=== PATIENT | male | born 1985 | race African-American/Black ===

== ENCOUNTER 2024-11-04 21:11 | Emergency (ER) | payer OTHER ==
--- OUTSIDE RECORDS SUMMARY | 2024-11-04 21:15 | XMS REPORT | Continuity of Care Document ---
Author Name Unknown Address [address] [facility]. [address] [place] [id number] [facility] thconnect Address [address] [facility] [place] [address] Care Team Providers Care Chief Operator Reformer Name Role Phone DEO MEYER Primary Care Physician Unavaila NICKY Pérez Attending Clinician Unavailable ERAN LUIS V Attending Clinician Unavailable ANA TANG Attending Clinician Unavailab STEPHEN [place] Attending Clinician UnavailKANG Klein Attending Clinician Unavailable RITA HANNA Attending Clinician Unavailable CONNIE GALLARDO Attending Clinician Unavailab CINDI Shelby Attending Clinician Unavailable MACI IBRAHIM Attending Clinician Unavaila FARHANA Duarte Attending Clinician Unavailable DAVID MARTIN Attending Clinician Unavailable ERASMO BEVERLY Attending Clinician Unavailable Jojo Rolle DO Attending Clinician [phone] JOJO ROLLE Attending Clinician Unavailab le Doctor Unassigned, [place] Attending Clinician U NOHEMI Louis Attending Clinician Unavailable Nohemi Benz NP Attending Clinician [phone] ADALID MURCIA Attending Clinician Unavailable PIYUSH PONCE MD(DO NOT USE) Attending Clinic cierra Unavailable KRIS Attending Clinician UnavailHEBER Cruz Attending Clinician UnavailLIBIA Man Attending Clinician Unavailable CAPRICE CRONIN Attending Clinician Unavail able MITCH Attending Clinician Unavailable STEPHAN KWON Attending Clinician Unavailable BARBIE MEZA Attending Clinician UnavailCATHLEEN Christensen Attending Clinician Unavailab TODD Dunbar Attending Clinician Unavailable MARTINEZ MELCHOR Attending Clinician Unavailable MATHEW BORJA Attending Clinician Unavailable ANANDA CHURCHILL Attending Clinician Unavailable DOMONIQUE BARKER Attending Clinician Unavailable YOHANNES ALLRED Attending Clinician Unavailable INNA BALTAZAR Attending Clinician Unavailab MADDY Alfredo Attending Clinician Unavailable Finn Prasad Attending Clinician Unavailable FELTON, ANNA C Attending Clinician Unavailable FELTON ANNA C Attending Clinician Unavailable ANTONINO PARKS Attending Clinician Unavailab MANUEL Reed Attending Clinician Unavailable ANA VELA Attending Clinician Unavailable CHUY HAYNES Attending Clinician Unavailable GRAYSON MONROY Attending Clinician Unavaila MONIQUE Choi Attending Clinician Unavailable KATHERINE AQUINO Attending Clinician Unavailable FRANCY THAKUR Attending Clinician Unavailable YEMI MULLER V Attending Clinician UnavailVIRA Garcia Attending Clinician Unavailable Sofia AU Attending Clinician Unavailable JOJO ROLLE Admitting Clinician Unavailab NOHEMI Salazar Admitting Clinician Unavailable KRIS Admitting Clinician Unavailmarisela MEYER Admitting Clinician Unavailable TODD BUITRAGO Admitting Clinician Unavailable Finn Prasad Admitting Clinician Unavailable CHUY HAYNES Admitting Clinician Unavailable Payers Payer Name Policy Type Policy Number Effective Date Expirati on Date Source [facility] (MEDICAID HMO) [id number] 2020 00:00:00 Problems Condition Name Condition Details Condition Category Status Onset Date Resolution Date Last Treatment Date Treating Clinician Comments Source Gastroesop hageal reflux disease Gastroesop hageal Reflux Disease Problem Active 2-23 00:00: 00 [place] [facility] Gastric ulcer Gastric Ulcer Problem Active 3 00:00: 00 [facility] Gallstone Gallstone Problem Active 11-24 00:00: 00 [facility] No known active problems No known active problems Disease [facility] Allergies, Adverse Reactions, Alerts Allergy Name Allergy Type Status Severity Reaction(s) Onset Date Inactive Date Treating Clinician Comments Source NO KNOWN ALLERGIE S Drug Class Active [facility] Social History Social Habit Start Date Stop Date Quantity Comments Source Exposure to SARS-CoV-2 (event) 2022-03-24 00:00:00 2022-04-03 17:07:00 Not sure [facility] Sex Assigned At 1985 00:00:00 1985 00:00:00 [facility] Smoking Status Start Date Stop Date Source Former Smoker [facility] Heavy Tobacco Smoker Jenise [facility] Tobacco smoking consumption unknown [facility] Medications Ordered Medication Name Filled Medication Name Start Date Stop Date Current Medication? Ordering Clinician Indication Dosage Frequency Signature (SIG) Comments Components Source ketorolac tromethamin e (TORADOL) injection 30 mg 04-03 22:15: 00 04-03 22:15 :00 No 30mg 30 mg, Slow IV Push, ONCE, 1 dose, On Fri04/03/22 at 1715, NORIS [facility] dexamethaso ne (DECADRON PHOSPHATE) injection 10 mg 10-27 01:45: 00 10-27 00:47 :00 No 10mg 10 mg, Intramuscu lar, ONCE, 1 dose, On Fri10/26/21 at 1945, Routine [facility] methocarbam oL (ROBAXIN) tablet 1,500 mg 10-27 01:45: 00 10-27 00:47 :00 No 1500mg 1,500 mg, Oral, ONCE, 1 dose, On Fri10/26/21 at 1945, NORIS [facility] methylPREDN ISolone 4 mg tablets 10-27 00:00: 00 Yes [id number] Take by mouth SEE-INSTRU CTIONS. follow package directions [facility] traMADoL 50 mg tablet 10-26 00:00: 00 11-03 05:59 :00 No [id number] 50mg Take 1 tablet by mouth every 6 (six) hours as needed for Pain (scale 4-6) or Pain (scale 7-10) for up to 7 days. Indication s: acute pain [facility] methocarbam oL 750 mg tablet 10-26 00:00: 00 10-31 05:59 :00 No [id number] 1500mg Take 2 tablets by mouth 4 (four) times daily for 4 days. [facility] pantoprazol e 40 mg tablet,emeli yed release pantoprazol e 40 mg tablet,emeli yed release No pantoprazo le 40 mg tablet,del ayed release [facility] ciprofloxac in 0.3 % eye drops INSTILL 1 DROP INTO AFFECTED EYE(S) BY OPHTHALMIC ROUTE EVERY 4 HOURSWHILE AWAKE 3D ciprofloxac in 0.3 % eye drops INSTILL 1 DROP INTO AFFECTED EYE(S) BY OPHTHALMIC ROUTE EVERY 4 HOURSWHILE AWAKE 3D No ciprofloxa rajesh 0.3 % eye drops INSTILL 1 DROP INTO AFFECTED EYE(S) BY OPHTHALMIC ROUTE EVERY 4 HOURSWHILE AWAKE 3D [facility] pantoprazol e 40 mg tablet,emeli yed release TAKE ONE TABLET BY MOUTH EVERY DAY FOR ACID REFLUX pantoprazol e 40 mg tablet,emeli yed release TAKE ONE TABLET BY MOUTH EVERY DAY FOR ACID REFLUX No pantoprazo le 40 mg tablet,del ayed release TAKE ONE TABLET BY MOUTH EVERY DAY FOR ACID REFLUX [facility] Vital Signs Vital Name Observation Time Observation Value Comments S ource Systolic blood pressure 2022-04-03 23:45:00 102 mm[Hg] [facility] Diastolic blood pressure 2022-04-03 23:45:00 78 mm[Hg] [facility] Heart rate 2022-04-03 23:45:00 80 /min [facility] Body temperature 2022-04-03 23:45:00 36.67 Lynnette [facility] Respiratory rate 2022-04-03 23:45:00 16 /min [facility] Oxygen saturation in Arterial blood by Pulse oximetry 2022-04-03 23:45:00 99 /min [facility] Body height 2022-04-03 22:09:00 185.4 cm [facility] Body weight 2022-04-03 22:09:00 69.854 kg [facility] BMI 2022-04-03 22:09:00 20.32 kg/m2 [facility] Systolic blood pressure 2021-10-27 02:00:00 105 mm[Hg] [facility] Diastolic blood pressure 2021-10-27 02:00:00 60 mm[Hg] [facility] Heart rate 2021-10-27 02:00:00 71 /min [facility] Respiratory rate 2021-10-27 02:00:00 18 /min [facility] Oxygen saturation in Arterial blood by Pulse oximetry 2021-10-27 02:00:00 98 /min [facility] Body temperature 2021-10-27 00:19:00 37.11 Lynnette [facility] Body weight 2021-10-27 00:19:00 69.854 kg [facility] BMI (Body Mass Index) 2020-11-07 00:00:00 18.5 kg/m2 [facility] Body Weight 2020-11-07 00:00:00 140 [lb_av] [place] [facility] Height 2020-11-07 00:00:00 73 [in_i] [place] BP Diastolic 2020-01-19 00:00:00 60 mm[Hg] [facility] Height 2020-01-19 00:00:00 73 [in_i] [facility] BMI (Body Mass Index) 2020-01-19 00:00:00 21.6 kg/m2 [facility] BP Systolic 2020-01-19 00:00:00 112 mm[Hg] [facility] Body Weight 2020-01-19 00:00:00 163.8 [lb_av] [facility] BP Diastolic 2019-11-25 00:00:00 63 mm[Hg] [facility] Height 2019-11-25 00:00:00 73 [in_i] [facility] BMI (Body Mass Index) 2019-11-25 00:00:00 22.7 kg/m2 [facility] BP Systolic 2019-11-25 00:00:00 106 mm[Hg] [facility] Body Weight 2019-11-25 00:00:00 172 [lb_av] [facility] Procedures Procedure Date / Time Performed Performing Clinician Source CT ABDOMEN PELVIS WO CONTRAST 2022-04-03 22:43:42 Jojo Rolle [facility] COMP. METABOLIC PANEL ([id number]) 2022-04-03 22:23:00 Jojo Rolle [facility] CBC WITH DIFF 2022-04-03 22:23:00 [facility] 2022-04-03 22:23:00 [facility] NOTICE OF PRIVACY PRACTICES 2022-04-03 22:06:38 Doctor Unassigned, [place] [facility] CONSENT/REFUSAL FOR DIAGNOSIS AND TREATMENT 2022-04-03 22:03:46 Doctor Unassigned, [place] [facility] AUTHORIZATION FOR RELEASE OF PHI 2021-12-11 05:01:00 Doctor Unassigned, [place] [facility] XR LUMBAR SPINE 3 VW 2021-10-27 01:34:00 Odalis Benz [facility] Plan of Care Planned Activity Planned Date Details Comments Source Instructions [facility] Encounters Start Date/Time End Date/Time Encounter Type Admission Type Attending [facility] Care Facility Care Department Encounter ID Source 2024-11-02 18:14:00 2024-11-02 20:00:00 Emergency ER NICKY DIETZ [facility] [id number] [facility] 2024-10-29 16:58:00 2024-10-29 18:23:00 Emergency ER ERAN LUIS [facility] [id number] [facility] 2024-08-28 12:51:00 2024-08-28 13:22:00 Emergency ER ANA TANG [facility] [id number] [facility] 2024-04-07 09:21:00 2024-04-07 11:00:00 Emergency ER STEPHEN DRIVER [facility] [id number] [facility] 2023-12-18 10:18:00 2023-12-18 13:35:00 Emergency ER Ana Tang [facility] [id number] [facility] 2023-10-02 23:02:00 2023-10-03 02:12:00 Emergency ER KANG STAPLES [facility] [id number] [facility] 2023-08-27 19:21:00 2023-08-27 23:00:00 Emergency ER STEPHEN DRIVER [facility] [id number] [facility] 2023-08-21 23:07:00 2023-08-22 01:45:00 Emergency ER STEPHEN DRIVER [facility] [id number] [facility] 2023-07-16 14:47:00 2023-07-16 15:50:00 Emergency ER Ana Tang [facility] [id number] [facility] 2023-07-13 17:59:00 2023-07-13 19:45:00 Emergency TR Ana Tang [facility] [id number] [facility] 2023-06-23 07:51:00 2023-06-23 07:51:00 Outpatient CHRIS RITA HANNA [facility] [id number] [facility] 2023-05-27 22:05:00 2023-05-27 23:20:00 Emergency ER STEPHEN DRIVER [facility] [id number] [facility] 2023-04-21 10:16:00 2023-04-21 14:04:00 Emergency ER CONNIE GALLARDO [facility] [id number] [facility] 2023-04-18 01:15:00 2023-04-18 03:35:00 Emergency ER CINDI SYLVESTER [facility] [id number] [facility] 2023-04-16 20:09:00 2023-04-16 22:24:00 Emergency ER Ana Tang [facility] [id number] [facility] 2023-03-20 21:21:00 2023-03-20 23:04:00 Emergency ER HIGINIO CINDI [facility] [id number] [facility] 2023-03-10 18:07:00 2023-03-10 20:45:00 Emergency ER MACI IBRAHIM [facility] [id number] [facility] 2023-02-27 21:04:00 2023-02-27 22:25:00 Emergency ER FARHANA AYALA [facility] [id number] [facility] 2023-02-23 15:53:00 2023-02-23 19:19:00 Emergency ER CONNIE GALLARDO [facility] [id number] [facility] 2023-02-17 22:45:00 2023-02-18 01:28:00 Emergency ER RADHANirmala, CINDI [facility] [id number] [facility] 2023-02-07 00:57:00 2023-02-07 03:47:00 Emergency ER MARIO LATTER-DAY [facility] [id number] [facility] 2022-12-30 11:15:00 2022-12-30 11:57:00 Emergency ER AYALAFARHANA [facility] [id number] [facility] 2022-12-19 21:58:00 2022-12-20 00:39:00 Emergency ER CINDI SYLVESTER [facility] [id number] [facility] 2022 19:00:00 2022 21:50:00 Emergency ER CINDI SYLVESTER [facility] [id number] [facility] 2022-11-14 12:35:00 2022-11-14 15:30:00 Emergency TR CONNIE GALLARDO [facility] [id number] [facility] 2022-10-01 07:47:00 2022-10-01 09:35:00 Emergency ER ERASMO BEVERLY [facility] [id number] [facility] 2022-05-20 14:48:00 2022-05-20 17:06:00 Emergency ER FARHANA AYALA [facility] [id number] [facility] 2022-04-03 17:15:00 2022-04-03 18:52:00 Emergency Jojo Rolle [facility] 1..840.114 [id number] [facility] 2022-04-03 17:15:00 2022-04-03 18:52:00 Emergency X JOJO ROLLE [facility] ERT [id number] [facility] 2021-12-11 00:00:00 2021-12-11 00:00:00 Orders Only Doctor Unassigned, [place] [facility] 1..840.114 [id number] [facility] 2021-10-26 18:24:00 2021-10-26 20:20:00 Emergency X MARTELL NOHEMI [facility] ERT [id number] [facility] 2021-10-26 18:24:00 2021-10-26 20:20:00 Emergency Nohemi Benz [facility] 1..840.114 [id number] [facility] 2021-10-25 22:32:00 2021-10-26 02:25:00 Emergency ER ADALID MURCIA [facility] [id number] [facility] 2021-10-23 20:28:00 2021-10-23 22:35:00 Emergency ER PIYUSH PONCE [facility] [id number] [facility] 2021-10-20 04:04:00 2021-10-20 06:36:00 Emergency ER CONNIE GALLARDO [facility] [id number] [facility] 2021-06-20 08:04:00 2021-06-20 08:04:00 Outpatient EL RITA HANNA [facility] [id number] [facility] 2021-05-25 23:18:00 2021-05-26 01:02:00 Emergency ER ADALID MURCIA [facility] [id number] [facility] 2021-02-08 10:15:00 2021-02-08 10:15:00 Outpatient METCALF_PRI SCILLA [facility] [id number] [facility] 2021-02-08 10:15:00 2021-02-08 10:15:00 Outpatient METCALF_PRI SCILLA [facility] [id number] [facility] 2021-02-01 11:07:00 2021-02-01 11:07:00 Outpatient METCALF_PRI SCILLA [facility] [id number] [facility] 2021-01-24 02:25:00 2021-01-24 02:25:00 Outpatient METCALF_PRI SCILLA [facility] [id number] [facility] 2021-01-22 02:35:00 2021-01-22 02:35:00 Outpatient METCALF_PRI SCILLA [facility] [id number] [facility] 2020-12-18 20:25:00 2020-12-19 00:19:00 Emergency ER HEBER COSME [facility] [id number] [facility] 2020-11-10 23:14:00 2020-11-11 05:02:00 Emergency ER HEBER COSME [facility] [id number] [facility] 2020-11-07 12:22:00 2020-11-07 12:22:00 Outpatient ONESIMOF_PRI SCIPIOA [facility] [id number] [facility] 2020-11-07 00:00:00 2020-11-07 00:00:00 Camryn Magaña MD: [address] [place] [id number] , Ph. [facility] [id number] [facility] 2020-09-06 09:48:00 2020-09-06 11:07:00 Emergency ER TRINY REYESSandra [facility] [id number] [facility] 2020-09-05 05:02:00 2020-09-05 08:30:00 Emergency ER ROSEANNECAPRICE [facility] [id number] [facility] 2020-08-02 02:32:00 2020-08-02 02:32:00 Outpatient NERET [facility] [id number] [facility] 2020-07-23 12:34:00 2020-07-23 14:17:00 Emergency ER LEESARory STEPHAN [facility] [id number] [facility] 2020-07-08 19:45:00 2020-07-08 20:37:00 Emergency ER BARBIE MEZA [facility] [id number] [facility] 2020-06-28 16:01:00 2020-06-28 18:37:00 Emergency ER TRINYREYESS [facility] [id number] [facility] 2020-04-30 09:53:00 2020-04-30 11:18:00 Emergency ER CATHLEEN PEÑALOZA [facility] [id number] [facility] 2020-02-05 20:37:00 2020-02-05 23:44:00 Emergency ER STEPHAN KWON [facility] [id number] [facility] 2020-02-02 12:28:00 2020-02-02 12:28:00 Outpatient NERET MMG [facility] [id number] [facility] 2020-01-31 08:00:00 2020-01-31 08:00:00 Outpatient TODD VICK [facility] [id number] [facility] 2020-01-19 06:14:00 2020-01-19 06:14:00 Outpatient NERET MMG [facility] [id number] [facility] 2020-01-19 00:00:00 2020-01-19 00:00:00 Todd Buitrago, DO: [address], [place] [address] , Ph. [phone] [facility] General surgery [id number] [facility] 2020-01-17 04:04:00 2020-01-17 04:04:00 Outpatient NERET [facility] [id number] [facility] 2020-01-16 01:28:00 2020-01-16 01:28:00 Outpatient NERET [facility] [id number] [facility] 2019-12-03 12:20:00 2019-12-03 12:20:00 Outpatient NERET [facility] [id number] [facility] 2019-11-25 11:34:00 2019-11-25 11:34:00 Outpatient NERET [facility] [id number] [facility] 2019-11-25 00:00:00 2019-11-25 00:00:00 Todd Buitrago, DO: [address], [place] [address] , Ph. [phone] [facility] - General surgery [id number] [facility] 2019-11-19 00:47:00 2019-11-19 01:32:00 Emergency ER LIBIA AGOSTO [facility] [id number] [facility] 2019-11-08 09:48:00 2019-11-08 09:48:00 [facility] [id number] [facility] 2019-10-08 10:42:00 2019-10-08 10:42:00 Outpatient MARTINEZ VITAL [facility] [id number] [facility] 2019-08-05 09:17:00 2019-08-05 11:30:00 Emergency ER STEPHAN KWON [facility] [id number] [facility] 2019-01-25 01:35:00 2019-01-25 02:48:00 Emergency ER HUONG MATHEW [facility] [id number] [facility] 2018-08-19 04:05:00 2018-08-19 04:45:00 Emergency ER KERLINE ANANDA [facility] [id number] [facility] 2018-08-18 11:39:00 2018-08-18 13:25:00 Emergency ER CAPRICE CRONIN [facility] [id number] [facility] 2018-05-20 06:05:00 2018-05-20 07:46:00 Emergency ER OWREYES RomeS [facility] [id number] [facility] 2018-05-17 18:24:00 2018-05-17 21:26:00 Emergency ER DOMONIQUE BARKER [facility] [id number] [facility] 2018-03-09 01:28:00 2018-03-09 04:28:00 Emergency ER OWO, TOKS [facility] [id number] [facility] 2018-02-11 22:51:00 2018-02-11 23:43:00 Emergency ER STEPHAN KWON [facility] [id number] [facility] 2018-01-05 23:23:00 2018-01-06 04:27:00 Emergency ER ANANDA CHURCHILL [facility] [id number] [facility] 2018-01-04 18:30:00 2018-01-04 18:52:00 Emergency ER YOHANNES ALLRED [facility] [id number] [facility] 2017-12-14 21:34:00 2017 00:47:00 Emergency ER ANANDA CHURCHILL [facility] [id number] [facility] 2017-12-01 14:34:00 2017-12-01 17:22:00 Emergency ER OWOREYESS [facility] [id number] [facility] 2017-11-23 17:44:00 2017-11-23 22:00:00 Emergency ER YOHANNES ALLRED [facility] [id number] [facility] 2017-11-22 05:42:00 2017-11-22 07:21:00 Emergency ER INNA BALTAZAR [facility] [id number] [facility] 2017-11-09 02:26:00 2017-11-09 03:50:00 Emergency ER STEPHAN KWON [facility] [id number] [facility] 2017-11-06 18:34:00 2017-11-06 19:15:00 Emergency ER OWOREYESS [facility] [id number] [facility] 2017-04-09 01:22:00 2017-04-09 05:10:00 Emergency ER KALYANOREYESS [facility] [id number] [facility] 2017-01-28 19:56:00 2017-01-29 03:10:00 Emergency ER LIBAI AGOSTO [facility] [id number] [facility] 2017-01-05 22:44:00 2017-01-06 00:41:00 Emergency ER LIBIA AGOSTO [facility] [id number] [facility] 2016-06-08 12:09:00 2016-06-08 14:35:00 Emergency ER CAPRICE CRONIN [facility] [id number] [facility] 2016-03-20 12:19:00 2016-03-20 15:10:00 Emergency ER OWLIBIA Rome [facility] [id number] [facility] 2016-01-15 21:42:00 2016-01-16 01:00:00 Emergency ER MADDY LAMAR [facility] [id number] [facility] 2016-01-04 15:57:00 2016-01-04 18:02:00 Emergency ER GIOVANNY CLEMENT [facility] [id number] [facility] 2015-06-23 04:33:00 2015-06-23 07:11:00 Emergency ER MORIS BARKERG [facility] [id number] [facility] 2015-05-25 22:14:00 2015-05-26 01:40:00 Emergency ER GIOVANNY CLEMENT [facility] [id number] [facility] [facility] 2015-05-15 00:03:00 2015-05-15 01:02:00 Emergency ER ADALID MURCIA [facility] [id number] [facility] 2015-05-07 08:34:00 2015-05-07 10:23:00 Emergency ER MORIS BARKERG [facility] [id number] [facility] 2015-05-05 13:33:00 2015-05-06 23:23:00 Inpatient ER TODD BUITRAGO [facility] [id number] [facility] 2015-03-30 21:08:00 2015-03-30 23:37:00 Emergency ER BA, DOMONIQUE [facility] [id number] [facility] 2015-03-03 23:50:00 2015-03-04 01:45:00 Emergency ER BA, DOMONIQUE [facility] [id number] [facility] 2015-02-25 20:08:00 2015-02-26 14:27:00 Inpatient ER Finn Prasad [facility] [id number] [facility] 2015-01-11 08:54:00 2015-01-11 11:14:00 Emergency ER BA, DOMONIQUE [facility] [id number] [facility] 2014-11-12 13:17:00 2014-11-12 15:20:00 Emergency ER FELTON, ANNA [facility] [id number] [facility] 2014-11-09 14:30:00 2014-11-09 16:22:00 Emergency ER FELTON, ANNA [facility] [id number] [facility] 2014-11-08 14:06:00 2014-11-08 17:42:00 Emergency ER JEREMY BALTAZARMENT [facility] [id number] [facility] 2014-10-28 18:23:00 2014-10-28 19:08:00 Emergency ER MURCIA, WASIM [facility] [id number] [facility] 2014-07-31 02:44:00 2014-07-31 03:34:00 Emergency ER BA, DOMONIQUE [facility] [id number] [facility] 2014-07-16 06:05:00 2014-07-16 08:00:00 Emergency ER MURCIA, WASIM [facility] [id number] [facility] 2014-07-07 07:41:00 2014-07-07 09:38:00 Emergency ER GIOVANNY, CLEMENT [facility] [id number] [facility] 2014-06-25 03:00:00 2014-06-25 05:52:00 Emergency ER ADALID MURCIA [facility] [id number] [facility] 2014-06-01 07:46:00 2014-06-01 10:06:00 Emergency ER MJ, DOMONIQUE [facility] [id number] [facility] 2014-05-06 11:29:00 2014-05-06 14:10:00 Emergency ER ANNA YA [facility] [id number] [facility] 2014-03-24 23:55:00 2014-03-25 01:40:00 Emergency ER MJ, DOMONIQUE [facility] [id number] [facility] 2014-03-15 23:03:00 2014-03-16 02:09:00 Emergency ER ANTONINO PARKS [facility] [id number] [facility] 2014-02-28 08:39:00 2014-02-28 08:39:00 Outpatient MANUEL CHERRY [facility] [id number] [facility] 2014-01-03 21:40:00 2014-01-03 23:20:00 Emergency ER ANTONINO PARKS [facility] [id number] [facility] 2013-11-06 01:47:00 2013-11-06 05:14:00 Emergency ER GIOVANNY, CLEMENT [facility] [id number] [facility] 2013-11-05 02:44:00 2013-11-05 03:57:00 Emergency ER ANA VELA [facility] [id number] [facility] 2013-06-17 12:40:00 2013-06-17 14:10:00 Emergency ER GIOVANNY, CLEMENT [facility] [id number] [facility] 2013-06-01 15:06:00 2013-06-01 17:04:00 Emergency ER INNA BALTAZAR [facility] [id number] [facility] 2013-04-21 23:10:00 2013-04-21 23:37:00 Emergency ER SHEIKH WASPAO [facility] [id number] [facility] 2013-03-30 12:13:00 2013-03-30 15:17:00 Emergency ER GIOVANNY CLENATI [facility] [id number] [facility] 2013-03-22 20:40:00 2013-03-22 22:32:00 Emergency ER ADALID MURCIA [facility] [id number] [facility] 2012-11-01 01:56:00 2012-11-01 02:47:00 Emergency ER SHEIKH WASPAO [facility] [id number] [facility] 2012-09-27 12:39:00 2012-09-27 14:25:00 Emergency ER ANA VELA [facility] [id number] [facility] 2012-09-25 23:53:00 2012-09-26 03:20:00 Emergency ER ADALID MURCIA [facility] [id number] [facility] 2012-06-03 10:13:00 2012-06-04 15:21:00 Inpatient ER CHUY HAYNES [facility] [id number] [facility] 2012-02-17 01:01:00 2012-02-17 03:00:00 Emergency ER SHEIKH WASPAO [facility] [id number] [facility] 2012-02-05 00:27:00 2012-02-05 03:25:00 Emergency ER GRAYSON MONROY [facility] [id number] [facility] 2012-01-29 15:31:00 2012-01-29 18:11:00 Emergency ER INNA BALTAZAR [facility] [id number] [facility] 2012-01-27 22:35:00 2012-01-28 00:30:00 Emergency ER ADALID MURCIA [facility] [id number] [facility] 2011-11-14 12:22:00 2011-11-14 14:40:00 Emergency ER MONIQUE BARRERA [facility] [id number] [facility] 2011-07-07 17:47:00 2011-07-07 21:15:00 Emergency ER ADALID MURCIA [facility] [id number] [facility] 2011-06-12 00:01:00 2011-06-12 02:02:00 Emergency ER GRAYSON MONROY [facility] [id number] [facility] 2011-03-24 01:00:00 2011-03-24 15:30:00 Emergency ER DOMONIQUE BARKER [facility] [id number] [facility] 2011-03-22 13:56:00 2011-03-23 09:00:00 Inpatient ER CHUY HAYNES [facility] [id number] [facility] 2011-03-05 11:37:00 2011-03-05 15:46:00 Emergency ER KATHERINE AQUINO [facility] [id number] [facility] 2011-03-04 20:56:00 2011-03-04 23:10:00 Emergency ER FRANCY THAKUR [facility] [id number] [facility] 2011-02-14 08:52:00 2011-02-14 08:52:00 Outpatient TODD VICK [facility] [id number] [facility] 2010-09-26 03:04:00 2010-09-26 04:38:00 Emergency ER INNA BALTAZAR [facility] [id number] [facility] 2010-07-14 16:23:00 2010-07-14 19:55:00 Emergency TR INNA BALTAZAR [facility] [id number] [facility] 2007-12-06 18:09:00 2007-12-06 19:10:00 Emergency ER DOMONIQUE BARKER [facility] [id number] [facility] 2007-12-02 04:10:00 2007-12-02 06:11:00 Emergency ER INNA BALTAZAR [facility] [id number] [facility] 2001-11-17 11:03:00 2001-11-17 13:30:00 Emergency ER YEMI MULLER [facility] [id number] [facility] 2001-08-24 15:28:00 2001-08-24 15:28:00 Outpatient VIRA ESCALANTE [facility] [id number] [facility] 2001-08-13 15:57:00 2001-08-13 15:57:00 Outpatient Sofia KISER [facility] [id number] [facility]
[2024-11-04 22:32] LABS: Absolute Eosinophils 0.1 K/uL (0-0.5); Absolute Lymphocytes (CBC) 1.1 K/uL (0.7-4.9); Absolute Monocytes 0.3 K/uL (0.1-1.3); Absolute Neutrophil 3.2 K/uL (1.8-8.0); Basophils % 0.3 % (0-1.3); Eosinophils % 1.3 % (0-4.4); Hematocrit 41.6 % (39.6-49.0); Hemoglobin 14.5 g/dL (13.6-17.9); Lymphocytes % 22.5 % (15.3-44.8); MCH 33.1 pg (27.0-35.0); MCHC 34.9 g/dL (32.0-36.0); MCV 94.8 fL (80-100); MPV 8.4 fL (7.6-11.3); Monocytes % 7.3 % (3.3-12.3); Neutrophils % 68.6 % (41.7-73.7); Nucleated Red Blood Cells % 0.3 % (0-0); Platelets 179 thou/uL (152-406); RBC Red Blood Cell Count 4.39 M/uL (4.33-5.43); Red Cell Distribution Width 12.6 % (12.1-15.2)
[2024-11-04 22:50] LABS: Albumin 4.1 g/dL (3.4-5.0); Albumin/Globulin Ratio 1.1 (1.1-1.8); Anion Gap 6.7 mEq/L (5.0-15.0); Bilirubin Total 0.8 mg/dL (0.2-1.0); Globulin 3.9 g/dL (2.3-3.5); Potassium 3.7 mEq/L (3.5-5.1)
[2024-11-04] MEDS ORDERED: NA CHLORIDE 0.9% 1,000 ML ONE (22:55)
[2024-11-04] MEDS ORDERED: KETOROLAC 30 MG/ML INJ ONE (22:55)
[2024-11-04] MEDS ORDERED: ONDANSETRON 4 MG/2 ML VIAL ONE (22:55)
[2024-11-04] MEDS ORDERED: FAMOTIDINE 20 MG/2 ML VIAL IV ONE (22:55)
--- NOTE | 2024-11-05 00:17 | RAD REPORT ---
EXAM: Abdomen Pelvis W Contrast CLINICAL INDICATION: 38-year-old male with lower abdominal pain. COMPARISON: None. EXAMINATION: CT of the abdomen and pelvis was performed following intravenous administration of contr ast. Oral contrast was not administered. Multiplanar reformatted images were provided. This exam was performed according to our departmental dose optimization program which includes use of automated exposure control, adjustment of the mA and/or kV according to patient size and/or use of iterative reconstruction technique. FINDINGS: Chest: Evaluation through the lung bases reveals no focal opacity, pleural effusion or pneumothorax. Heart size is within normal limits. No pericardial effusion. Abdomen and pelvis: The liver, gallbladder, pancreas, spleen, bilateral kidneys and bilateral adrenal glands are within normal limits. Circumscribed round lesion in the lower pole of the left kidney with indeterminate Hounsfield values. Further evaluation with CT or MRI renal protocol is recommended . Hounsfield values measure approximately 46 and measures 2.2 cm. The vessels are patent and normal in caliber. No abdominopelvic lymph nodes are noted to be pathologically enlarged by CT measurement criteria. The bowel is within normal limits without abnormal bowel wall thickness or bowel dilation. No free air. No free abdominopelvic fluid collections. The appendix is within normal limits. Thickene d appearance of the bladder wall may be secondary to incomplete distention, however can be seen in the setting of infectious or inflammatory process. Please correlate with laboratory values. The osseous structures are within normal limits. IMPRESSION: 1. No specific acute intra-abdominal findings are noted to suggest etiology of the patient's abdomi nal pain. 2. Thickened appearance of the bladder wall may be secondary to incomplete distention, however can be seen in the setting of infectious or inflammatory process. Please correlate with laboratory values. 3. 2.2 cm indeterminate left renal lesion. Further evaluation with a CT or MRI renal protocol is re commended. Electronically signed by: Lucy Villareral MD 11/05/2024 12:10 AM [facility] Due to temporary technical issues with the [employer] reporting system, reports are being mary d by the in-house radiologist without review as a courtesy to ensure prompt reporting the interpreting radiologist is fully responsible for the content of the report. Transcribed Date/Time: 11/05/2024 12:16 AM
[2024-11-05 02:02] LABS: Sqamous Epithelial None Seen /HPF (None Seen); Urine Bacteria None Seen /HPF (<20); Urine Bilirubin NEGATIVE (Negative); Urine Blood Negative (Negative); Urine Clarity Clear (Clear); Urine Color Light-Yellow (Yellow); Urine Culture Reflex Order NOT NEEDED; Urine Glucose NEGATIVE (Negative); Urine Ketones 1+ (Negative); Urine Microscopic Reflex YN ORDER UMIC; Urine Nitrite NEGATIVE (Negative); Urine Protein 1+ (Negative); Urine RBC <5 /HPF (None Seen); Urine Urobilinogen Normal (Normal); Urine WBC <5 /HPF (<5)
[2024-11-05 03:30] LABS: Specific Gravity > 1.030 (1.005-1.030)
[2024-11-05] MEDS ORDERED: PANTOPRAZOLE 40MG TABLET PO ONE (04:16)
[2024-11-05] MEDS ORDERED: DICYCLOMINE HCL 10 MG CAP ONE (04:16)
[2024-11-05] MEDS ORDERED: IBUPROFEN 400 MG TAB ONE (04:16)
[2024-11-05] MEDS ORDERED: METOCLOPRAMIDE 5 MG TAB ONE (04:17)
--- NOTE | 2024-11-05 04:17 | EDPHYS ---
Physician Documentation [facility] Name: Mg Zavala III Age: 38 yrs Sex: Male : 1985 Arrival Date: 11/04/2024 Time: 21:11 Bed 2 Private MD: ED Physician Henok Lopez HPI: 11/04 22:25 This 38 yrs old Black Male presents to ER via Ambulatory with complaints of Abdominal cp Pain, Back Pain. 22:25 The patient presents with abdominal pain in the lower abdomen. Onset: The cp symptoms/episode began/occurred 7 day(s) ago. Associated signs and symptoms: Pertinent positives: nausea, vomiting, low back pain, Pertinent negatives: blood in stools, constipation, diarrhea, dysuria, fever. The symptoms are described as waxing/waning. Historical: - Allergies: 21:22 No Known Allergies; ap3 - PMHx: 21:22 TBI; Irregular heart rate; ap3 - PSHx: 21:22 back; ap3 - Immunization history:: Client reports having NOT received the Covid vaccine. Last tetanus immunization: up to date Flu vaccine is not up to date. - Infectious Disease History:: Denies. - Social history:: Smoking status: Patient reports the use of cigarette tobacco products. ROS: 22:25 Constitutional: Negative for body aches, chills, fever, poor PO intake, cp 22:25 Eyes: Negative for injury, pain, redness, and discharge, cp 22:25 ENT: Negative for drainage from ear(s), ear pain, sore throat, difficulty swallowing, difficulty handling secretions, 22:25 Cardiovascular: Negative for chest pain, edema, palpitations, 22:25 Respiratory: Negative for cough, shortness of breath, wheezing, 22:25 Abdomen/GI: Positive for abdominal pain, nausea, vomiting, of the right lower quadrant and left lower quadrant, Negative for diarrhea, constipation, 22:25 Back: Positive for pain at rest, pain with movement, of the low back, 22:25 : Negative for urinary symptoms, testicular pain 22:25 Neuro: Negative for altered mental status, dizziness, headache, weakness, 22:25 All other systems are negative, Exam: 22:28 Head/Face: Normocephalic, atraumatic. cp 22:28 Constitutional: The patient appears in no acute distress, alert, awake, non-toxic, well developed, well nourished, uncomfortable, 22:28 Eyes: Periorbital structures: appear normal, Conjunctiva: normal, no exudate, no injection, Sclera: no appreciated abnormality, Lids and lashes: appear normal, bilaterally, 22:28 ENT: External ear(s): are unremarkable, Nose: is normal, Mouth: Lips: moist, Oral mucosa: moist, Posterior pharynx: Airway: no evidence of obstruction, patent, 22:28 Neck: ROM/movement: is normal, is supple, without pain, no range of motions limitations, no meningismus, no nuchal rigidity, 22:28 Chest/axilla: Inspection: normal, :28 Cardiovascular: Rate: normal, Rhythm: regular, 22:28 Respiratory: the patient does not display signs of respiratory distress, Respirations: normal, no use of accessory muscles, no retractions, labored breathing, is not present, Breath sounds: are clear throughout, no decreased breath sounds, no stridor, no wheezing, 22: Abdomen/GI: Inspection: abdomen appears normal, Bowel sounds: active, all quadrants, Palpation: soft, in all quadrants, moderate abdominal tenderness, in the right lower quadrant and left lower quadrant, rebound tenderness, is not appreciated, voluntary guarding, is elicited in the right lower quadrant and left lower quadrant, 22:28 Back: pain, that is moderate, of the low back area, 22:28 Neuro: Orientation: to person, place \T\ time. Mentation: is normal, cp Vital Signs: 21:21 BP 122 / 93; Pulse 94; Resp 18; Temp 98.1; Pulse Ox 100% ; Weight 69.4 kg; Height 6 ft. ap3 1 in. ; Pain 10/10; 22:06 BP 128 / 87; Pulse 70; Resp 19; Temp 98.2; Pulse Ox 100% on R/A; ay 23:00 BP 119 / 60; Pulse 71; Resp 16; Pulse Ox 98% on R/A; al5 02 00:00 BP 97 / 64 LA; Pulse 64; Resp 18; Pulse Ox 98% on R/A; al5 01:00 BP 96 / 54 LA; Pulse 63; Resp 18; Pulse Ox 99% on R/A; al5 02:30 BP 99 / 54; Pulse 61; Resp 16; Pulse Ox 98% on R/A; al5 03:00 BP 107 / 55; Pulse 74; Resp 16; Pulse Ox 99% on R/A; al5 04:00 BP 102 / 51; Pulse 66; Resp 15; Pulse Ox 100% on R/A; al5 11/04 21:21 Body Mass Index 20.19 (69.40 kg, 185.42 cm) ap3 11/04 21:21 Pain Scale: Adult ap3 Lauren Coma Score: 11/04 22:02 Eye Response: spontaneous(4). Motor Response: obeys commands(6). Verbal Response: ay oriented(5). Total: 15. MDM: 21:26 Medical Screening Exam initiated cp 11/05 04:13 Differential diagnosis: Myeloma Neoplasm Osteoarthritis Osteoporosis Peptic Ulcer sp4 Pyelonephritis. Data reviewed: vital signs, nurses notes, old medical records, lab test result(s), radiologic studies, CT scan. Consideration of Admission/Observation Escalation of care including admission/observation considered. ED course: EXAM: Abdomen Pelvis W Contrast CLINICAL INDICATION: 38-year-old male with lower abdominal pain. COMPARISON: None. EXAMINATION: CT of the abdomen and pelvis was performed following intravenous administration of contrast. Oral contrast was not administered. Multiplanar reformatted images were provided. This exam was performed according to our departmental dose optimization program which includes use of automated exposure control, adjustment of the mA and/or kV according to patient size and/or use of iterative reconstruction technique. FINDINGS: Chest: Evaluation through the lung bases reveals no focal opacity, pleural effusion or pneumothorax. Heart size is within normal limits. No pericardial effusion. Abdomen and pelvis: The liver, gallbladder, pancreas, spleen, bilateral kidneys and bilateral adrenal glands are within normal limits. Circumscribed round lesion in the lower pole of the left kidney with indeterminate Hounsfield values. Further evaluation with CT or MRI renal protocol is recommended. Hounsfield values measure approximately 46 and measures 2.2 cm. The vessels are patent and normal in caliber. No abdominopelvic lymph nodes are noted to be pathologically enlarged by CT measurement criteria. The bowel is within normal limits without abnormal bowel wall thickness or bowel dilation. No free air. No free abdominopelvic fluid collections. The appendix is within normal limits. Thickened appearance of the bladder wall may be secondary to incomplete distention, however can be seen in the setting of infectious or inflammatory process. Please correlate with laboratory values. The osseous structures are within normal limits. IMPRESSION: 1. No specific acute intra-abdominal findings are noted to suggest etiology of the patient's abdominal pain. 2. Thickened appearance of the bladder wall may be secondary to incomplete distention, however can be seen in the setting of infectious or inflammatory process. Please correlate with laboratory values. 3. 2.2 cm indeterminate left renal lesion. Further evaluation with a CT or MRI renal protocol is recommended. . ED course: Patient stable for discharge home diagnosis likely acute viral gastroenteritis. Patient has left renal nodule. Advised follow-up within 2 months with primary care physician for repeat CT.. 11/04 22:10 Order name: CBC with Diff; Complete Time: 00:41 cp 11/04 22:10 Order name: CMP; Complete Time: 00:41 cp 11/05 00:41 Interpretation: Normal except: NA 134; CO2 33; GLOB 3.9. cp 11/04 22:10 Order name: Lipase; Complete Time: 00:41 cp 11/04 22:10 Order name: Urinalysis w/ reflexes; Complete Time: 03:58 cp 11/04 22:10 Order name: CT Abd/Pelvis - IV Contrast Only cp 11/05 00:42 Interpretation: Report reviewed. cp 11/04 22:10 Order name: IV Saline Lock; Complete Time: 22:31 cp 11/04 22:10 Order name: Labs collected and sent; Complete Time: 22:31 cp Administered Medications: 11/04 23:03 Drug: Ketorolac IVP 15 mg IVP once Route: IVP; Site: left forearm; al5 11/05 04:30 Follow up: Response: No adverse reaction al5 11/04 23:03 Drug: NS 0.9% IV 1000 ml IV at 1000 ml once; to be given as a bolus over 60 minutes al5 Route: IV; Rate: 1000 ml; Site: left forearm; 11/05 04:30 Follow up: Response: No adverse reaction; IV Status: Completed infusion; IV Intake: al5 1000ml 11/04 23:03 Drug: Ondansetron IVP 4 mg IVP once; over 2 minutes Route: IVP; Site: left forearm; al5 11/05 04:30 Follow up: Response: No adverse reaction al5 11/04 23:03 Drug: Famotidine IVP 20 mg IVP once; dilute with 10 mL 0.9% NaCl; give over 2 minutes al5 Route: IVP; Site: left forearm; 11/05 04:30 Follow up: Response: No adverse reaction al5 04:30 Drug: Pantoprazole PO 80 mg PO once Route: PO; al5 04:31 Follow up: Response: No adverse reaction; Medication administered at discharge. al5 04:30 Drug: MetoCLOPramide PO 10 mg PO once Route: PO; al5 04:31 Follow up: Response: No adverse reaction; Medication administered at discharge. al5 04:30 Drug: Dicyclomine PO 20 mg PO once Route: PO; al5 04:30 Follow up: Response: No adverse reaction; Medication administered at discharge. al5 04:30 Drug: Ibuprofen PO 800 mg PO once Route: PO; al5 04:30 Follow up: Response: No adverse reaction; Medication administered at discharge. al5 Disposition: 04:13 Co-signature as Attending Physician, Henok Lopez MD I agree with the assessment sp4 and plan of care. I reviewed the patient's care provided by Advanced Practice Provider \T\ agree w/ the diagnosis \T\ care plan. I personally saw the pt \T\ performed a substantive portion of the visit, incldng all aspects of the (History/Exam/Medical Decision Making). Disposition Summary: 11/05/24 04:17 Discharge Ordered Notes: Location: Home sp4 Problem: new sp4 Symptoms: have improved sp4 Condition: Stable sp4 Diagnosis - Acute viral gastroenteritis, nausea, vomiting diarrhea, left renal nodule - sp4 incidental finding Followup: sp4 - With: Capo Acevedo DO - When: 7 - 10 days - Reason: Recheck today's complaints Discharge Instructions: - Discharge Summary Sheet sp4 - Clear Liquid Diet, Adult, [id number] sp4 Forms: - Patient Portal Instructions sp4 Prescriptions: - omeprazole 40 mg Oral capsule,delayed release (e.c.) - dissolve 1 capsule ORAL route daily for 30 days; 30 capsule; Refills: 0, sp4 Product Selection Permitted - Reglan 10 mg Oral tablet - take 1 tablet ORAL route every 6 hours PRN nausea; 30 tablet; Refills: 0, sp4 Product Selection Permitted - dicyclomine 20 mg Oral tablet - take 1 tablet ORAL route 4 times per day; 30 tablet; Refills: 0, Product sp4 Selection Permitted Signatures: Dispatcher [employer] EDMS Simeon Garcia PA PA cp Prokisch, Amanda, EMRE RN ap3 Henok Lopez MD MD sp4 Melani Camarillo, EMRE RN al5 Corrections: (The following items were deleted from the chart) 11/04 22:11 22:11 CBC+H.LAB.BRZ ordered. EDMS EDMS 22:11 22:11 COMPREHENSIVE METABOLIC PANEL+C.LAB.BRZ ordered. EDMS EDMS 22:11 22:11 LIPASE+C.LAB.BRZ ordered. EDMS EDMS 22:11 22:11 Urinalysis+U.LAB.BRZ ordered. EDMS EDMS
--- NOTE | 2024-11-05 04:17 | ER ---
Nurse's Notes [facility] Name: Mg Zavala III Age: 38 yrs Sex: Male : 1985 Arrival Date: 11/04/2024 Time: 21:11 Bed 2 Private MD: Diagnosis: Acute viral gastroenteritis, nausea, vomiting diarrhea, left renal nodule - incidental finding Presentation: 11/04 21:21 Chief complaint: Patient states: he has been having abdominal pain that radiates to his ap3 back for 6 to 7 days. patient states he has been evaluated at another facility with no relief. patient currently rates his pain as a 10/10 on the pain scale. patient also states he is having nausea/vomiting. Coronavirus screen: At this time, the client does not indicate any symptoms associated with coronavirus-19. Ebola Screen: No symptoms or risks identified at this time. Initial Sepsis Screen: Does the patient meet any 2 criteria? HR > 90 bpm. Does the patient have a suspected source of infection? No. Patient's initial sepsis screen is negative. Risk Assessment: Do you want to hurt yourself or someone else? Patient reports no desire to harm self or others. Onset of symptoms is unknown. 21:21 Method Of Arrival: Ambulatory ap3 21:21 Acuity: DARIN 3 ap3 Triage Assessment: 21:24 General: Appears uncomfortable, Behavior is calm, cooperative, appropriate for age. ap3 Pain: Complains of pain in back and abdomen Pain currently is 10 out of 10 on a pain scale. Pain began 6 to 7 days ago. Neuro: Level of Consciousness is awake, alert, obeys commands, Oriented to person, place, time, situation, Appropriate for age. Cardiovascular: Patient's skin is warm and dry. Respiratory: Airway is patent Respiratory effort is even, unlabored, Respiratory pattern is regular, symmetrical. GI: Reports lower abdominal pain, upper abdominal pain, intolerance of fluids, intolerance of food, nausea, vomiting. Historical: - Allergies: 21:22 No Known Allergies; ap3 - PMHx: 21:22 TBI; Irregular heart rate; ap3 - PSHx: 21:22 back; ap3 - Immunization history:: Client reports having NOT received the Covid vaccine. Last tetanus immunization: up to date Flu vaccine is not up to date. - Infectious Disease History:: Denies. - Social history:: Smoking status: Patient reports the use of cigarette tobacco products. Screenin:24 Abuse screen: Denies threats or abuse. Nutritional screening: Has had N/V for 3 or more ap3 days. Tuberculosis screening: No symptoms or risk factors identified. 22:02 [facility] ED Fall Risk Assessment (Adult) History of falling in the last 3 months, ay including since admission No falls in past 3 months (0 pts) Confusion or Disorientation No (0 pts) Intoxicated or Sedated No (0 pts) Impaired Gait No (0 pts) Mobility Assist Device Used No (0 pt) Altered Elimination No (0 pt) Score/Fall Risk Level 0 - 2 = Low Risk Oriented to surroundings, Maintained a safe environment, Educated pt \T\ family on fall prevention, incl call for assistance when getting out of bed. Assessment: 22:02 General: Appears in no apparent distress. uncomfortable, Behavior is calm, cooperative. ay Pain: Complains of pain in abdomen and back Pain currently is 10 out of 10 on a pain scale. Quality of pain is described as burning. 22:02 Neuro: Level of Consciousness is awake, alert, obeys commands, Oriented to person, ay place, time, situation, Speech is normal. Cardiovascular: Capillary refill < 3 seconds Patient's skin is warm and dry. Respiratory: Airway is patent Respiratory effort is even, unlabored, Respiratory pattern is regular, symmetrical. GI: Bowel sounds present X 4 quads. Abd is soft X 4 quads. : No signs and/or symptoms were reported regarding the genitourinary system. EENT: No signs and/or symptoms were reported regarding the EENT system. Derm: No signs and/or symptoms reported regarding the dermatologic system. 23:00 Reassessment: Patient appears in no apparent distress at this time. No changes from al5 previously documented assessment. Patient and/or family updated on plan of care and expected duration. Pain level reassessed. Patient is alert, oriented x 3, equal unlabored respirations, skin warm/dry/pink. 11/05 01:12 Reassessment: Patient appears in no apparent distress at this time. No changes from al5 previously documented assessment. Patient and/or family updated on plan of care and expected duration. Pain level reassessed. Patient is alert, oriented x 3, equal unlabored respirations, skin warm/dry/pink. 02:57 Reassessment: Patient appears in no apparent distress at this time. No changes from al5 previously documented assessment. Patient and/or family updated on plan of care and expected duration. Pain level reassessed. Patient is alert, oriented x 3, equal unlabored respirations, skin warm/dry/pink. 04:32 Reassessment: Patient appears in no apparent distress at this time. Patient and/or al5 family updated on plan of care and expected duration. Pain level reassessed. Patient is alert, oriented x 3, equal unlabored respirations, skin warm/dry/pink. Patient states feeling better. Patient states symptoms have improved. Vital Signs: 11/04 21:21 BP 122 / 93; Pulse 94; Resp 18; Temp 98.1; Pulse Ox 100% ; Weight 69.4 kg; Height 6 ft. ap3 1 in. ; Pain 10/10; 22:06 BP 128 / 87; Pulse 70; Resp 19; Temp 98.2; Pulse Ox 100% on R/A; ay 23:00 BP 119 / 60; Pulse 71; Resp 16; Pulse Ox 98% on R/A; al5 11/05 00:00 BP 97 / 64 LA; Pulse 64; Resp 18; Pulse Ox 98% on R/A; al5 01:00 BP 96 / 54 LA; Pulse 63; Resp 18; Pulse Ox 99% on R/A; al5 02:30 BP 99 / 54; Pulse 61; Resp 16; Pulse Ox 98% on R/A; al5 03:00 BP 107 / 55; Pulse 74; Resp 16; Pulse Ox 99% on R/A; al5 04:00 BP 102 / 51; Pulse 66; Resp 15; Pulse Ox 100% on R/A; al5 11/04 21:21 Body Mass Index 20.19 (69.40 kg, 185.42 cm) ap3 11/04 21:21 Pain Scale: Adult ap3 Lauren Coma Score: 11/04 22:02 Eye Response: spontaneous(4). Motor Response: obeys commands(6). Verbal Response: ay oriented(5). Total: 15. ED Course: 21:17 Patient arrived in ED. mr 21:18 Simeon Garcia PA is PHCP. cp 21:18 Henok Loepz MD is Attending Physician. cp 21:22 Triage completed. ap3 21:25 Arm band placed on right wrist. ap3 21:53 Miky Marmolejo, RN is Primary Nurse. ay 22:02 Bed in low position. Call light in reach. Side rails up X2. Pulse ox on. NIBP on. ay 22:20 Provided Education on: plan of care. al5 22:31 Inserted saline lock: 22 gauge in left forearm, using aseptic technique. Blood oe collected. Flushed with 10 mL NS. 22:31 CBC with Diff Sent. oe 22:31 CMP Sent. oe 22:31 Lipase Sent. oe 23:27 CT Abd/Pelvis - IV Contrast Only In Process Unspecified. EDMS 11/05 01:47 Urinalysis w/ reflexes Sent. ay 03:08 No provider procedures requiring assistance completed. al5 04:15 Capo Acevedo DO is Referral Physician. sp4 04:32 IV discontinued, intact, bleeding controlled, No redness/swelling at site. Pressure al5 dressing applied. Administered Medications: 11/04 23:03 Drug: Ketorolac IVP 15 mg IVP once Route: IVP; Site: left forearm; al5 11/05 04:30 Follow up: Response: No adverse reaction al5 11/04 23:03 Drug: NS 0.9% IV 1000 ml IV at 1000 ml once; to be given as a bolus over 60 minutes al5 Route: IV; Rate: 1000 ml; Site: left forearm; 11/05 04:30 Follow up: Response: No adverse reaction; IV Status: Completed infusion; IV Intake: al5 1000ml 11/04 23:03 Drug: Ondansetron IVP 4 mg IVP once; over 2 minutes Route: IVP; Site: left forearm; al5 11/05 04:30 Follow up: Response: No adverse reaction al5 11/04 23:03 Drug: Famotidine IVP 20 mg IVP once; dilute with 10 mL 0.9% NaCl; give over 2 minutes al5 Route: IVP; Site: left forearm; 11/05 04:30 Follow up: Response: No adverse reaction al5 04:30 Drug: Pantoprazole PO 80 mg PO once Route: PO; al5 04:31 Follow up: Response: No adverse reaction; Medication administered at discharge. al5 04:30 Drug: MetoCLOPramide PO 10 mg PO once Route: PO; al5 04:31 Follow up: Response: No adverse reaction; Medication administered at discharge. al5 04:30 Drug: Dicyclomine PO 20 mg PO once Route: PO; al5 04:30 Follow up: Response: No adverse reaction; Medication administered at discharge. al5 04:30 Drug: Ibuprofen PO 800 mg PO once Route: PO; al5 04:30 Follow up: Response: No adverse reaction; Medication administered at discharge. al5 Medication: 03:08 VIS not applicable for this client. al5 Intake: 04:30 IV: 1000ml; Total: 1000ml. al5 Outcome: 04:17 Discharge ordered by . sp4 04:32 Discharged to home ambulatory, al5 04:32 Condition: good 04:32 Discharge instructions given to patient, Instructed on discharge instructions, follow up and referral plans. medication usage, Demonstrated understanding of instructions, follow-up care, medications, Prescriptions given X 3, 04:32 Patient left the ED. al5 Signatures: Dispatcher [employer]DA[employer] Ana Trevino, [facility] Reg mr Simeon Garcia, ZAK PA Shakir Pham Amanda, RN RN ap3 Henok Lopez MD MD sp4 Melani Camarillo RN RN al5 Miky Marmolejo RN RN ay
[2024-11-06 00:23] VITALS: TEMP 98.2
[2024-11-06 00:34] VITALS: BP 102/51; O2SAT 100
== END 2024-11-05 04:32 | disposition home or self-care (01) ==
LOC: ER 21:11
DX: A08.4 Viral intestinal infection, unspecified (principal); N28.89 Other specified disorders of kidney and ureter; Z72.0 Tobacco use
CPT/HCPCS: 96361; 85025; 81001; 36415; 83690; 80053; 74177; 96375; 96374; 99284; Q9967; J2405; J7030